=== PATIENT | female | born 1950 | race Caucasian/White ===

== ENCOUNTER 2023-04-30 02:17 | Observation (INO) ==
[2023-04-30 03:04] LABS: ABS Lymphocytes 0.6 10^3/uL (1.0-4.8); ABS Monocytes 0.2 10^3/uL (0.0-0.9); ABS Neutrophils 5.2 10^3/uL (1.5-7.6); Hematocrit 45.3 % (35-45); Hemoglobin 15.5 g/dL (11.5-14.3); Lymphocyte % 9.5 %; Mean Corpuscular Hemoglobin 29.5 pg (27-33); Mean Corpuscular Hgb Conc 34.2 g/dL (31-36); Mean Corpuscular Volume 86.3 fL (80-97); Mean Platelet Volume 7.8 fL (7.5-11.2); Nucleated Red Blood Cells % 0.1 %/100WBC (0.0-0.8); Platelet Count 237 10^3/uL (150-450); Red Blood Count 5.25 10^6/uL (3.63-4.92); Red Cell Distribution Width 13.8 % (12-17)
[2023-04-30 03:22] LABS: Albumin 4.4 g/dL (3.2-5.2); Albumin/Globulin Ratio 1.5 (1-3); Calcium 9.7 mg/dL (8.6-10.3); Creatinine, Serum 0.89 mg/dL (0.51-0.95); Potassium 3.9 mmol/L (3.5-5.0); Total Bilirubin 0.4 mg/dL (0.2-1.0); Total Protein 7.4 g/dL (6.4-8.9); eGFR CKD-EPI 68.4 (>60)
[2023-04-30] MEDS ORDERED: Ondansetron 4 mg VIAL 2 MG/ML 2 ml VIAL IV ONE (03:48)
[2023-04-30] MEDS ORDERED: Al Hydrox/Mg Hydrox/Simet LIQ 30 ML UDC PO ONE (03:49)
[2023-04-30] MEDS ORDERED: Morphine 4 MG/ML VIAL (1 ml) IV ONE (03:49)
[2023-04-30] MEDS ORDERED: Iohexol 300 (CONTRAST) 10 ML SDV IV ONE (04:15)
[2023-04-30] MEDS ORDERED: NS 0.9% 1000 ml BAG 1,000 ML IV ONE (07:00)
[2023-04-30] MEDS ORDERED: HYDROmorphone 1 MG/1 ML SYRINGE IV SLOW PU PRN ×3 (07:05→13:44)
[2023-04-30] MEDS ORDERED: Ondansetron 4 mg VIAL 2 MG/ML 2 ml VIAL IV PRN (07:05)
[2023-04-30] MEDS ORDERED: Succinylcholine 200 mg VIAL 20 mg/ml 10 ml VIAL (200 mg) ONE (07:43)
[2023-04-30] MEDS ORDERED: Midazolam 2 mg/2 ml VIAL 1 mg/ml 2 ml VIAL (2 mg) ONE (07:44)
[2023-04-30] MEDS ORDERED: Lidocaine 2% PF 5 ML VIAL ONE (07:44)
[2023-04-30] MEDS ORDERED: fentaNYL 250 mcg/5 ml 50 MCG/ML 5 ml VIAL (250 MCG) ONE (07:44)
[2023-04-30] MEDS ORDERED: Phenylephrine 40 mcg/mL 10mL (400mcg) SYRINGE ONE (07:46)
[2023-04-30] MEDS ORDERED: ceFAZolin 2 GM in NS PREMIX 2 GM/100 ML BAG IVPB ONE (07:48)
[2023-04-30] MEDS ORDERED: ceFAZolin 2 GM PREMIX 2 GM/50 ML BAG ONE (07:50)
[2023-04-30] MEDS ORDERED: metroNIDAZOLE IV 500 MG/100ML 500 MG/100 ML BAG IVPB ONE (07:57)
[2023-04-30] MEDS ORDERED: Bupivacaine 0.25% EPI 200,000 30 ML SDV ONE (08:19)
[2023-04-30] MEDS ORDERED: Dexamethasone IV 4 MG/ML VIAL 1 ml VIAL ONE (08:39)
[2023-04-30] MEDS ORDERED: Ondansetron 4 mg VIAL 2 MG/ML 2 ml VIAL ONE (08:39)
[2023-04-30] MEDS ORDERED: metroNIDAZOLE IV 500 MG/100ML 500 MG/100 ML BAG ONE (08:43)
[2023-04-30] MEDS ORDERED: Acetaminophen IV 1 GM/100ML 1,000 MG/100 ML BAG IV ONE (08:52)
[2023-04-30] MEDS ORDERED: HYDROmorphone 0.5 MG/0.5 ML SYRINGE ONE (09:07)
[2023-04-30] MEDS ORDERED: Rocuronium 50 mg VIAL 10 mg/ml 5 ml VIAL (50 mg) ONE (09:40)
[2023-04-30] MEDS ORDERED: Sevoflurane BOTTLE ONE (09:54)
[2023-04-30] MEDS ORDERED: fentaNYL 100 mcg/2 ml 50 MCG/ML VIAL ONE (09:55)
[2023-04-30] MEDS ORDERED: HYDROmorphone 0.5 MG/0.5 ML SYRINGE IV SLOW PU PRN (10:48)
[2023-04-30] MEDS ORDERED: Albuterol HFA INHALER 8 gm MDI INH PRN (11:36)
[2023-04-30] MEDS: Acetaminophen IV 1 GM/100ML 1,000 MG/100 ML BAG IV SCH ×2 (13:00→20:23)
[2023-04-30] MEDS: Lactated Ringers 1000 ml BAG 1,000 ML IV SCH ×2 (13:49→22:30)
[2023-05-01] MEDS: Acetaminophen IV 1 GM/100ML 1,000 MG/100 ML BAG IV SCH ×2 (03:28→11:18)
[2023-05-01] MEDS: Lactated Ringers 1000 ml BAG 1,000 ML IV SCH (07:25)
[2023-05-01 10:38] VITALS: BP 153/83
== END 2023-05-01 15:22 | disposition home or self-care (01) ==
LOC: ED 02:17 → EDHOLD 02:17 → AA 08:36 → SSU 12:08
PROVIDERS: ADMIT Surgery; ATTEND Surgery